=== PATIENT | female | born 1960 | race African-American/Black ===

== ENCOUNTER 2022-12-31 08:01 | Inpatient (IN) | payer MEDICARE, OTHER ==
[~2022-12-31] VITALS: Ht 154.9 cm; Wt 93.9 kg
[2022-12-31] MEDS ORDERED: PROCHLORPERAZINE EDISYLATE 5 MG/ML 2ML VIAL IV ONE (08:15)
[2022-12-31] MEDS ORDERED: SODIUM CHLORIDE 0.9% 1,000 ML IVB ONE (08:15)
[2022-12-31] MEDS ORDERED: ONDANSETRON HCL 4 MG/2 ML VIAL IV ONE (08:15)
[2022-12-31] MEDS ORDERED: PANTOPRAZOLE 40 MG/10 ML VIAL INJ IV ONE (08:15)
[2022-12-31 08:37] LABS: Basophils # (auto) 0.1 10 ^3/uL (0-0.2); Basophils % (auto) 0.6 % (0.0-2.0); Eosinophils # (auto) 0 10 ^3/uL (0-0.8); Eosinophils % (auto) 0.1 % (0.0-7.0); Hematocrit 41.2 % (36.0-46.0); Hemoglobin 14.1 g/dL (12.2-16.2); Lymphocytes # (auto) 1.6 10 ^3/uL (0.4-5.4); Lymphocytes % (auto) 12.5 % (10.0-50.0); Mean Corpuscular Hemoglobin 29.6 pg (28.0-32.0); Mean Corpuscular Hgb Conc. 34.1 g/dL (32.0-36.0); Mean Corpuscular Volume 86.7 fL (80.0-100.0); Monocytes # (auto) 0.4 10 ^3/uL (0-1.3); Monocytes % (auto) 3.4 % (0.0-12.0); Neutrophils # (auto) 10.3 10 ^3/uL (1.6-8.6); Neutrophils % (auto) 83.4 % (37.0-80.0); Nucleated Red Blood Cells % 0.1 %; Red Blood Cells 4.75 10^6/uL (4.0-5.20); Red Cell Distribution Width 15.8 % (11.8-14.3); White Blood Cell 12.4 10^3/uL (4.4-10.8)
[2022-12-31 08:43] LABS: Urine Bacteria FEW /hpf (None Seen); Urine Blood 1+ /uL (Negative); Urine Mucus FEW (None Seen); Urine Specific Gravity 1.024 (1.001-1.035); Urine WBC 20 /hpf (0 - 5)
[2022-12-31 08:58] LABS: Albumin 3.8 g/dL (3.4-5.0); Calcium 9.2 mg/dL (8.5-10.1); Magnesium 2.4 mg/dL (1.6-2.6)
[2022-12-31] MEDS ORDERED: MORPHINE SULFATE INJ 2 MG/ml SYRG IV ONE (09:00)
[2022-12-31 09:02] LABS: Bilirubin, Total 0.5 mg/dL (0.2-1.0); Total Protein 7.7 g/dL (6.4-8.2)
[2022-12-31 09:12] LABS: Potassium 2.9 mmol/L (3.5-5.1)
[2022-12-31] MEDS ORDERED: cefTRIAXone 1GM/50ML D5W 50 ML IV ONE ×2 (09:15→09:30)
[2022-12-31] MEDS ORDERED: SODIUM CHLORIDE 0.9% 1,000 ML IV ONE (09:30)
[2022-12-31] MEDS ORDERED: levoFLOXacin 500MG 100 ML IV ONE (09:30)
[2022-12-31] MEDS ORDERED: POTASSIUM CHL 20MEQ/100ML 100 ML IV ONE (09:45)
[2022-12-31] MEDS ORDERED: hydrALAZINE HCL 20 MG/ML VL IV PRN (10:30)
[2022-12-31] MEDS ORDERED: DEXTROSE (50%) 50ML SYRG IV PRN (10:30)
[2022-12-31] MEDS: SODIUM CHLORIDE 0.9% 1,000 ML IV SCH ×2 (11:20→18:56)
[2022-12-31 11:34] LABS: Alcohol, Urine < 3.0 mg/dL (0-10); Amphetamine Screen, Urine NEGATIVE (NEGATIVE); Barbiturate Scree,Urine NEGATIVE (NEGATIVE); Benzodiazephine Screen, Urine NEGATIVE (NEGATIVE); Cannabinoid Screen, Urine POSITIVE (NEGATIVE); Cocaine Screen, Urine POSITIVE (NEGATIVE); Opiate Scree,Urine NEGATIVE (NEGATIVE)
[2022-12-31 11:47] LABS: Phencyclidine Screen, Urine NEGATIVE (NEGATIVE)
[2022-12-31] MEDS ORDERED: IPRATROPIUM BROM 0.5 MG/2.5ML INH SOL NEB PRN (12:00)
[2022-12-31] MEDS ORDERED: ALBUTEROL SULF 2.5 MG/0.5ML(0.5%) NEB SOLN NEB PRN (12:00)
[2022-12-31] MEDS: ONDANSETRON HCL 4 MG/2 ML VIAL IV PRN ×2 (12:07→16:18)
[2022-12-31] MEDS: ACCU-CHEK COMFORT CURVE STRIP VI SCH ×2 (12:11→18:13)
[2022-12-31] MEDS: InsuLIN REG 1unit/0.01ml Soln (100units/ml) SC SCH ×2 (12:40→18:00)
[2022-12-31 12:49] LABS: Sodium Urine 16 mmol/L (40-220)
[2022-12-31 12:58] LABS: Creatinine, Urine 294 mg/dL (30.0-125.0)
[2022-12-31 13:48] VITALS: BP 153/83; PULSE 88; RESP 15; TEMP 98; O2SAT 100
[2022-12-31 16:00] VITALS: PULSE 82; RESP 18; O2SAT 98
[2022-12-31] MEDS ORDERED: POTASSIUM CHL 20 Meq TABLET PO ONE (16:00)
[2022-12-31] MEDS: MORPHINE SULFATE INJ 2 MG/ml SYRG IV PRN ×2 (16:19→22:35)
[2022-12-31] MEDS: POTASSIUM CHL 20MEQ/100ML 100 ML IV SCH ×2 (16:32→18:16)
[2022-12-31 19:28] VITALS: PULSE 79; RESP 12; O2SAT 97
[2023-01-01] MEDS: SODIUM CHLORIDE 0.9% 1,000 ML IV SCH ×3 (03:27→20:10)
[2023-01-01] MEDS: MORPHINE SULFATE INJ 2 MG/ml SYRG IV PRN ×4 (03:37→20:22)
[2023-01-01] MEDS: InsuLIN REG 1unit/0.01ml Soln (100units/ml) SC SCH ×4 (06:00→18:00)
[2023-01-01] MEDS: ACCU-CHEK COMFORT CURVE STRIP VI SCH ×4 (06:06→18:00)
[2023-01-01 06:25] VITALS: O2SAT 94
[2023-01-01 06:55] LABS: Basophils # (auto) 0.1 10 ^3/uL (0-0.2); Basophils % (auto) 1.1 % (0.0-2.0); Eosinophils # (auto) 0.1 10 ^3/uL (0-0.8); Eosinophils % (auto) 1.2 % (0.0-7.0); Hematocrit 37.7 % (36.0-46.0); Hemoglobin 12.9 g/dL (12.2-16.2); Lymphocytes # (auto) 2.9 10 ^3/uL (0.4-5.4); Lymphocytes % (auto) 23.5 % (10.0-50.0); Mean Corpuscular Hemoglobin 29.3 pg (28.0-32.0); Mean Corpuscular Hgb Conc. 34.1 g/dL (32.0-36.0); Mean Corpuscular Volume 85.9 fL (80.0-100.0); Monocytes % (auto) 7.8 % (0.0-12.0); Neutrophils # (auto) 8.1 10 ^3/uL (1.6-8.6); Neutrophils % (auto) 66.4 % (37.0-80.0); Nucleated Red Blood Cells % 0.1 %; Red Blood Cells 4.39 10^6/uL (4.0-5.20); Red Cell Distribution Width 15.7 % (11.8-14.3); White Blood Cell 12.2 10^3/uL (4.4-10.8)
[2023-01-01 07:00] LABS: Albumin 3.6 g/dL (3.4-5.0); Calcium 9.1 mg/dL (8.5-10.1); Potassium 3.3 mmol/L (3.5-5.1)
[2023-01-01 07:06] LABS: Bilirubin, Total 0.7 mg/dL (0.2-1.0); Total Protein 7.2 g/dL (6.4-8.2)
[2023-01-01] MEDS: ONDANSETRON HCL 4 MG/2 ML VIAL IV PRN ×2 (07:51→20:21)
[2023-01-01 08:14] VITALS: PULSE 82; RESP 18; O2SAT 96
[2023-01-01] MEDS ORDERED: PANTOPRAZOLE 40 MG/10 ML VIAL INJ IV SCH (10:00)
[2023-01-01] MEDS: NICOTINE 21MG/24 HR TOPICAL PATCH TD SCH (10:07)
[2023-01-01] MEDS: cefTRIAXone 1GM/50ML D5W 50 ML IV SCH (10:07)
[2023-01-01] MEDS ORDERED: POTASSIUM CHL 20 Meq TABLET PO ONE (17:00)
[2023-01-01] MEDS ORDERED: TRAZ-228 PO (17:15)
[2023-01-01] MEDS ORDERED: MET25T PO (17:15)
[2023-01-01] MEDS ORDERED: LURA40TA3 PO (17:15)
[2023-01-01] MEDS ORDERED: AMLO1TAB23 PO (17:15)
[2023-01-01] MEDS ORDERED: traZODone HCL 50 MG TAB PO PRN (17:30)
[2023-01-01] MEDS ORDERED: IOHEXOL 300 MG/ML 100ML BOTTLE IJ ONE (17:31)
[2023-01-01 17:55] LABS: Cholesterol 195 mg/dL (< 200); HDL Cholesterol 66 mg/dL (40-59); LDL Cholesterol 120 mg/dL (< 100); Triglycerides 52 mg/dL (< 150)
[2023-01-01] MEDS ORDERED: MIRT1TAB38 PO (18:06)
[2023-01-01] MEDS ORDERED: QUET100T47 PO (18:06)
[2023-01-01] MEDS ORDERED: HYDR-3682 PO (18:06)
[2023-01-01 20:00] VITALS: PULSE 69; RESP 14; O2SAT 96
[2023-01-01 22:23] VITALS: BP 152/81; PULSE 68; RESP 18; TEMP 98; O2SAT 100
[2023-01-01] MEDS: hydrOXYzine 25 MG TAB or CAP PO SCH (22:23)
[2023-01-01] MEDS: METOPROLOL TARTRATE 25 MG TAB PO SCH (22:23)
[2023-01-02] VITALS (11 sets, daily range): BP systolic 135–159; BP diastolic 69–85; PULSE 53–75; RESP 16–22; TEMP 97.9–98.2; O2SAT 97–100
[2023-01-02] MEDS: MIRTAZAPINE 30 MG TAB PO PRN ×2 (00:12→21:50)
[2023-01-02] MEDS: ACCU-CHEK COMFORT CURVE STRIP VI SCH ×4 (00:18→17:42)
[2023-01-02] MEDS: SODIUM CHLORIDE 0.9% 1,000 ML IV SCH ×2 (04:10→12:30)
[2023-01-02] MEDS: InsuLIN REG 1unit/0.01ml Soln (100units/ml) SC SCH ×4 (06:00→17:44)
[2023-01-02] MEDS: hydrOXYzine 25 MG TAB or CAP PO SCH ×3 (06:00→21:39)
[2023-01-02 07:02] LABS: BUN/Creatinine Ratio 10.7 (10.0-20.0); Calcium 8.7 mg/dL (8.5-10.1); Potassium 3.4 mmol/L (3.5-5.1)
[2023-01-02] MEDS ORDERED: POTASSIUM CHL 20MEQ/100ML 100 ML IV ONE (07:45)
[2023-01-02] MEDS: cefTRIAXone 1GM/50ML D5W 50 ML IV SCH (09:19)
[2023-01-02] MEDS: ONDANSETRON HCL 4 MG/2 ML VIAL IV PRN ×3 (09:19→20:28)
[2023-01-02] MEDS: amLODIPine BESYLATE 5 MG TAB PO SCH (10:12)
[2023-01-02] MEDS: METOPROLOL TARTRATE 25 MG TAB PO SCH ×2 (10:12→21:40)
[2023-01-02] MEDS: PANTOPRAZOLE 40 MG TAB PO SCH (10:12)
[2023-01-02] MEDS: QUEtiapine FUMARATE 100 MG TAB PO SCH (10:12)
[2023-01-02] MEDS: NICOTINE 21MG/24 HR TOPICAL PATCH TD SCH (10:13)
[2023-01-02] MEDS: MORPHINE SULFATE INJ 2 MG/ml SYRG IV PRN ×2 (13:12→20:35)
[2023-01-02] MEDS ORDERED: DICYCLOMINE HCL 10 MG CAP PO PRN (13:30)
[2023-01-02 14:43] LABS: BUN/Creatinine Ratio 11.3 (10.0-20.0); Calcium 8.6 mg/dL (8.5-10.1); Potassium 3.9 mmol/L (3.5-5.1)
[2023-01-02] MEDS: VANCOMYCIN HCL 125MG/5ML ORAL SOL PO SCH ×2 (17:46→21:41)
[2023-01-02] MEDS: ATORVASTATIN 20 MG TAB PO SCH (21:38)
[2023-01-02] MEDS: NITROFURANTOIN 100 mg CAP PO SCH (21:38)
[2023-01-03] VITALS (10 sets, daily range): BP systolic 133–168; BP diastolic 67–87; PULSE 61–96; RESP 16–19; TEMP 97.9–98.9; O2SAT 94–100
[2023-01-03] MEDS: InsuLIN REG 1unit/0.01ml Soln (100units/ml) SC SCH ×2 (00:17→05:57)
[2023-01-03] MEDS: ACCU-CHEK COMFORT CURVE STRIP VI SCH ×2 (00:19→05:56)
[2023-01-03] MEDS: SODIUM CHLORIDE 0.9% 1,000 ML IV SCH ×2 (00:20→05:10)
[2023-01-03 05:25] LABS: Basophils # (auto) 0.1 10 ^3/uL (0-0.2); Basophils % (auto) 0.6 % (0.0-2.0); Eosinophils # (auto) 0.3 10 ^3/uL (0-0.8); Eosinophils % (auto) 2.9 % (0.0-7.0); Hematocrit 38.9 % (36.0-46.0); Hemoglobin 13.4 g/dL (12.2-16.2); Lymphocytes # (auto) 2.8 10 ^3/uL (0.4-5.4); Lymphocytes % (auto) 25.3 % (10.0-50.0); Mean Corpuscular Hemoglobin 29.9 pg (28.0-32.0); Mean Corpuscular Hgb Conc. 34.5 g/dL (32.0-36.0); Mean Corpuscular Volume 86.6 fL (80.0-100.0); Monocytes # (auto) 0.8 10 ^3/uL (0-1.3); Monocytes % (auto) 6.8 % (0.0-12.0); Neutrophils # (auto) 7.3 10 ^3/uL (1.6-8.6); Neutrophils % (auto) 64.4 % (37.0-80.0); Nucleated Red Blood Cells % 0.1 %; Red Blood Cells 4.49 10^6/uL (4.0-5.20); Red Cell Distribution Width 15.6 % (11.8-14.3); White Blood Cell 11.3 10^3/uL (4.4-10.8)
[2023-01-03 05:26] LABS: BUN/Creatinine Ratio 15.9 (10.0-20.0); Calcium 8.8 mg/dL (8.5-10.1); Magnesium 2.2 mg/dL (1.6-2.6); Potassium 3.6 mmol/L (3.5-5.1)
[2023-01-03] MEDS: hydrOXYzine 25 MG TAB or CAP PO SCH ×3 (05:35→21:53)
[2023-01-03] MEDS: MORPHINE SULFATE INJ 2 MG/ml SYRG IV PRN ×4 (05:38→21:55)
[2023-01-03] MEDS: ONDANSETRON HCL 4 MG/2 ML VIAL IV PRN ×4 (05:43→21:54)
[2023-01-03] MEDS: VANCOMYCIN HCL 125MG/5ML ORAL SOL PO SCH ×4 (06:00→21:52)
[2023-01-03] MEDS: PANTOPRAZOLE 40 MG TAB PO SCH (09:18)
[2023-01-03] MEDS: QUEtiapine FUMARATE 100 MG TAB PO SCH (09:18)
[2023-01-03] MEDS: METOPROLOL TARTRATE 25 MG TAB PO SCH ×2 (09:19→21:53)
[2023-01-03] MEDS: amLODIPine BESYLATE 5 MG TAB PO SCH (09:20)
[2023-01-03] MEDS: NITROFURANTOIN 100 mg CAP PO SCH ×2 (09:20→21:52)
[2023-01-03] MEDS: NICOTINE 21MG/24 HR TOPICAL PATCH TD SCH (09:21)
[2023-01-03] MEDS ORDERED: LURASIDONE 40 MG PO SCH (17:30)
[2023-01-03] MEDS: ATORVASTATIN 20 MG TAB PO SCH (21:52)
[2023-01-04] VITALS (8 sets, daily range): BP systolic 121–159; BP diastolic 62–86; PULSE 61–71; RESP 16–18; TEMP 97.9–98.4; O2SAT 93–100
[2023-01-04] MEDS: ONDANSETRON HCL 4 MG/2 ML VIAL IV PRN ×4 (05:41→23:11)
[2023-01-04] MEDS: hydrOXYzine 25 MG TAB or CAP PO SCH ×3 (05:42→22:29)
[2023-01-04] MEDS: MORPHINE SULFATE INJ 2 MG/ml SYRG IV PRN ×4 (05:42→23:11)
[2023-01-04] MEDS: VANCOMYCIN HCL 125MG/5ML ORAL SOL PO SCH ×4 (05:42→22:31)
[2023-01-04] MEDS: PANTOPRAZOLE 40 MG TAB PO SCH (09:35)
[2023-01-04] MEDS: NICOTINE 21MG/24 HR TOPICAL PATCH TD SCH (09:35)
[2023-01-04] MEDS: NITROFURANTOIN 100 mg CAP PO SCH ×2 (09:35→22:29)
[2023-01-04] MEDS: METOPROLOL TARTRATE 25 MG TAB PO SCH ×2 (09:36→22:29)
[2023-01-04] MEDS: amLODIPine BESYLATE 5 MG TAB PO SCH (09:36)
[2023-01-04] MEDS: QUEtiapine FUMARATE 100 MG TAB PO SCH (09:36)
[2023-01-04] MEDS: LURASIDONE 40 MG PO SCH (16:41)
[2023-01-04] MEDS: ATORVASTATIN 20 MG TAB PO SCH (22:29)
[2023-01-05] VITALS (7 sets, daily range): BP systolic 109–167; BP diastolic 62–87; PULSE 60–76; RESP 18–22; TEMP 98.4–99.1; O2SAT 98–100
[2023-01-05] MEDS: MIRTAZAPINE 30 MG TAB PO PRN (00:32)
[2023-01-05] MEDS: HYDROcodone-ACET 5/325MG TAB PO PRN ×2 (01:39→08:25)
[2023-01-05] MEDS: ONDANSETRON HCL 4 MG/2 ML VIAL IV PRN (04:30)
[2023-01-05] MEDS: MORPHINE SULFATE INJ 2 MG/ml SYRG IV PRN (04:41)
[2023-01-05 05:30] LABS: Basophils # (auto) 0 10 ^3/uL (0-0.2); Basophils % (auto) 0.3 % (0.0-2.0); Eosinophils # (auto) 0.4 10 ^3/uL (0-0.8); Eosinophils % (auto) 3.4 % (0.0-7.0); Hemoglobin 14.1 g/dL (12.2-16.2); Lymphocytes % (auto) 16.4 % (10.0-50.0); Mean Corpuscular Hemoglobin 29.8 pg (28.0-32.0); Mean Corpuscular Hgb Conc. 34.3 g/dL (32.0-36.0); Mean Corpuscular Volume 86.9 fL (80.0-100.0); Monocytes % (auto) 8.6 % (0.0-12.0); Neutrophils # (auto) 8.6 10 ^3/uL (1.6-8.6); Neutrophils % (auto) 71.3 % (37.0-80.0); Nucleated Red Blood Cells % 0.1 %; Red Blood Cells 4.72 10^6/uL (4.0-5.20); Red Cell Distribution Width 15.8 % (11.8-14.3); White Blood Cell 12.1 10^3/uL (4.4-10.8)
[2023-01-05] MEDS: hydrOXYzine 25 MG TAB or CAP PO SCH ×3 (05:45→21:37)
[2023-01-05] MEDS: VANCOMYCIN HCL 125MG/5ML ORAL SOL PO SCH ×4 (05:45→21:37)
[2023-01-05 06:09] LABS: BUN/Creatinine Ratio 13.5 (10.0-20.0); Magnesium 2.3 mg/dL (1.6-2.6); Potassium 3.2 mmol/L (3.5-5.1)
[2023-01-05] MEDS ORDERED: POTASSIUM CHL 20 Meq TABLET PO ONE (08:00)
[2023-01-05] MEDS ORDERED: MORPHINE SULFATE INJ 2 MG/ml SYRG IV PRN (08:45)
[2023-01-05] MEDS: NITROFURANTOIN 100 mg CAP PO SCH ×2 (09:00→21:37)
[2023-01-05] MEDS: QUEtiapine FUMARATE 100 MG TAB PO SCH (09:00)
[2023-01-05] MEDS: amLODIPine BESYLATE 5 MG TAB PO SCH (09:00)
[2023-01-05] MEDS: PANTOPRAZOLE 40 MG TAB PO SCH (09:01)
[2023-01-05] MEDS: NICOTINE 21MG/24 HR TOPICAL PATCH TD SCH (09:01)
[2023-01-05] MEDS: METOPROLOL TARTRATE 25 MG TAB PO SCH ×2 (09:01→21:37)
[2023-01-05] MEDS: HYDROmorphone HCL 2 MG/ML VL/or syr IV PRN ×2 (15:05→19:28)
[2023-01-05] MEDS: LURASIDONE 40 MG PO SCH (17:30)
[2023-01-05] MEDS: ATORVASTATIN 20 MG TAB PO SCH (21:37)
[2023-01-06] MEDS: HYDROmorphone HCL 2 MG/ML VL/or syr IV PRN ×3 (00:08→09:53)
[2023-01-06] MEDS: MIRTAZAPINE 30 MG TAB PO PRN (02:21)
[2023-01-06 05:00] VITALS: BP 155/87; PULSE 75; RESP 20; TEMP 97.7; O2SAT 93
[2023-01-06] MEDS: hydrOXYzine 25 MG TAB or CAP PO SCH ×2 (05:59→14:00)
[2023-01-06] MEDS: VANCOMYCIN HCL 125MG/5ML ORAL SOL PO SCH ×2 (05:59→12:00)
[2023-01-06 07:02] LABS: Anion Gap 10 (5-15); BUN/Creatinine Ratio 15.6 (10.0-20.0); Blood Urea Nitrogen 15 mg/dL (7-18); Calcium 8.8 mg/dL (8.5-10.1); Carbon Dioxide 25 mmol/L (21-32); Chloride 104 mmol/L (98-107); GFR African American 75 mL/min; GFR Non-African American 62 mL/min; Glucose 131 mg/dL (74-106); Potassium 3.4 mmol/L (3.5-5.1); Sodium 139 mmol/L (136-145)
[2023-01-06 08:10] VITALS: BP 152/77; PULSE 62; RESP 22; TEMP 98.7
[2023-01-06] MEDS ORDERED: POTASSIUM CHL 20 Meq TABLET PO ONE (08:30)
[2023-01-06] MEDS ORDERED: MIRTAZAPINE 30 MG TAB PO PRN (08:30)
[2023-01-06 09:00] VITALS: BP 116/75; PULSE 75; RESP 18; TEMP 98.1; O2SAT 98
[2023-01-06 09:50] LABS: Basophils # (auto) 0.1 10 ^3/uL (0-0.2); Basophils % (auto) 0.4 % (0.0-2.0); Eosinophils # (auto) 0.6 10 ^3/uL (0-0.8); Eosinophils % (auto) 3.8 % (0.0-7.0); Hematocrit 37.1 % (36.0-46.0); Hemoglobin 12.7 g/dL (12.2-16.2); Lymphocytes # (auto) 1.7 10 ^3/uL (0.4-5.4); Lymphocytes % (auto) 11.6 % (10.0-50.0); Mean Corpuscular Hemoglobin 30.2 pg (28.0-32.0); Mean Corpuscular Hgb Conc. 34.2 g/dL (32.0-36.0); Mean Corpuscular Volume 88.4 fL (80.0-100.0); Monocytes # (auto) 1.7 10 ^3/uL (0-1.3); Monocytes % (auto) 11.3 % (0.0-12.0); Neutrophils % (auto) 72.9 % (37.0-80.0); Nucleated Red Blood Cells % 0.1 %; Red Blood Cells 4.19 10^6/uL (4.0-5.20); Red Cell Distribution Width 16.1 % (11.8-14.3); White Blood Cell 15.1 10^3/uL (4.4-10.8)
[2023-01-06] MEDS: QUEtiapine FUMARATE 100 MG TAB PO SCH (09:50)
[2023-01-06] MEDS: NITROFURANTOIN 100 mg CAP PO SCH (09:51)
[2023-01-06] MEDS: amLODIPine BESYLATE 5 MG TAB PO SCH (09:51)
[2023-01-06] MEDS: METOPROLOL TARTRATE 25 MG TAB PO SCH (09:51)
[2023-01-06] MEDS: PANTOPRAZOLE 40 MG TAB PO SCH (09:51)
[2023-01-06] MEDS: NICOTINE 21MG/24 HR TOPICAL PATCH TD SCH (09:56)
[2023-01-06] MEDS ORDERED: HYDROmorphone HCL 2 MG/ML VL/or syr IV PRN (11:15)
[2023-01-06] MEDS ORDERED: KETOROLAC TROMETH 30 MG/ML 1ML VIAL IV PRN (11:15)
[2023-01-06] MEDS ORDERED: HYDR-4902 PO (11:27)
[2023-01-06] MEDS ORDERED: VANC125PO PO (11:27)
[2023-01-06 13:00] VITALS: BP 111/73; PULSE 68; RESP 18; TEMP 98.5; O2SAT 94
[2023-01-06] MEDS: ONDANSETRON HCL 4 MG/2 ML VIAL IV PRN (14:47)
[2023-01-06] MEDS: HYDROcodone-ACET 5/325MG TAB PO PRN (14:48)
[2023-01-06 15:17] VITALS: BP 130/68; PULSE 78; TEMP 36.7
== END 2023-01-06 17:54 | disposition home or self-care (01) | DRG 372 ==
LOC: ER 08:01 → TELE 10:36 → TELE-WESTW 01-01 20:47
PROVIDERS: ADMIT Internal Medicine Pulmonary Disease
DX: A04.72 Enterocolitis due to Clostridium difficile, not specified as recurrent (principal); N17.9 Acute kidney failure, unspecified; N30.00 Acute cystitis without hematuria; E86.0 Dehydration; E87.6 Hypokalemia; I10 Essential (primary) hypertension; F17.210 Nicotine dependence, cigarettes, uncomplicated; F12.10 Cannabis abuse, uncomplicated; F31.9 Bipolar disorder, unspecified; J44.9 Chronic obstructive pulmonary disease, unspecified; R73.9 Hyperglycemia, unspecified; D72.829 Elevated white blood cell count, unspecified; I25.10 Atherosclerotic heart disease of native coronary artery without angina pectoris; K08.89 Other specified disorders of teeth and supporting structures; D35.02 Benign neoplasm of left adrenal gland; E78.5 Hyperlipidemia, unspecified; Z79.899 Other long term (current) drug therapy; Z83.3 Family history of diabetes mellitus; Z99.81 Dependence on supplemental oxygen; Z90.49 Acquired absence of other specified parts of digestive tract; Z98.51 Tubal ligation status
CPT/HCPCS: 36415; 71260; 74176; 74177; 80048; 80053; 80061; 80307; 81001; 82570; 82962; 83036; 83605; 83690; 83735; 83835; 83930; 84132; 84300; 85025; 87045; 87086; 87427; 87493; 94640; 96365; 96375; C9113; G0378; J0696; J1815; J2405; J3480

== ENCOUNTER 2023-06-10 09:22 | Emergency (ER) | payer MEDICARE, OTHER ==
[~2023-06-10] VITALS: Ht 154.9 cm; Wt 68.0 kg
[~2023-06-10 09:22] MED LIST: AMLO1TAB23 PO; HYDR-3682 PO; HYDR-4902 PO; LURA40TA3 PO; MET25T PO; MIRT1TAB38 PO; QUET100T47 PO; TRAZ-228 PO; VANC125PO PO
[2023-06-10 09:49] VITALS: TEMP 98; O2SAT 100
[2023-06-10] MEDS ORDERED: HYDROcodone-ACET 10/325MG TAB PO ONE (10:00)
[2023-06-10] MEDS ORDERED: ONDANSETRON HCL 4 MG/2 ML VIAL IM ONE (10:00)
[2023-06-10] MEDS ORDERED: METOCLOPRAMIDE HCL 5MG/ml INJ 2ml VIAL IM ONE (10:30)
[2023-06-10] MEDS ORDERED: HYDROmorphone HCL 2 MG/ML VL/or syr IM ONE (10:45)
[2023-06-10 11:08] LABS: Rapid Influenza A Negative (Negative); Rapid Influenza B Negative (Negative)
[2023-06-10 11:09] LABS: COVID19 ANTIGEN SOFIA FIA NEGATIVE (NEGATIVE)
[2023-06-10 11:31] LABS: Alanine Aminotransferase 25 U/L (7-40); Albumin 4.8 g/dL (3.2-4.8); Alkaline Phosphatase 130 U/L (46-116); Anion Gap 7 (5-15); Aspartate Aminotransferase 18 U/L (13-40); BUN/Creatinine Ratio 12.6 (10.0-20.0); Bilirubin, Total 0.8 mg/dL (0.2-1.0); Blood Urea Nitrogen 12 mg/dL (9-23); Calcium 9.7 mg/dL (8.7-10.4); Carbon Dioxide 27 mmol/L (20-30); Chloride 104 mmol/L (98-107); Glucose 151 mg/dL (74-106); Lipase 34 U/L (12-53); Potassium 3.2 mmol/L (3.5-5.1); Sodium 138 mmol/L (136-145); Total Protein 7.7 g/dL (5.7-8.2)
[2023-06-10 11:39] VITALS: BP 138/70; PULSE 79; RESP 18
[2023-06-10 11:52] LABS: Basophils # (auto) 0.1 10 ^3/uL (0-0.2); Basophils % (auto) 0.6 % (0.0-2.0); Eosinophils # (auto) 0 10 ^3/uL (0-0.8); Eosinophils % (auto) 0.1 % (0.0-7.0); Hemoglobin 14.5 g/dL (12.2-16.2); Lymphocytes # (auto) 1.9 10 ^3/uL (0.4-5.4); Lymphocytes % (auto) 16.6 % (10.0-50.0); Mean Corpuscular Hemoglobin 28.8 pg (28.0-32.0); Mean Corpuscular Hgb Conc. 33.6 g/dL (32.0-36.0); Mean Corpuscular Volume 85.7 fL (80.0-100.0); Monocytes # (auto) 0.6 10 ^3/uL (0-1.3); Monocytes % (auto) 5.2 % (0.0-12.0); Neutrophils # (auto) 8.9 10 ^3/uL (1.6-8.6); Neutrophils % (auto) 77.5 % (37.0-80.0); Nucleated Red Blood Cells % 0.9 %; Red Blood Cells 5.02 10^6/uL (4.0-5.20); Red Cell Distribution Width 15.4 % (11.8-14.3); White Blood Cell 11.5 10^3/uL (4.4-10.8)
[2023-06-10 12:23] LABS: Urine Bacteria NONE SEEN /hpf (None Seen); Urine Blood TRACE /uL (Negative); Urine Clarity Clear (Clear); Urine Color Yellow (Yellow); Urine Hyaline Cast FEW /lpf (0 - 2); Urine Mucus FEW (None Seen); Urine Protein, UAD 2+ (Negative); Urine Specific Gravity 1.021 (1.001-1.035); Urine WBC 5 /hpf (0 - 5)
[2023-06-10] MEDS ORDERED: METO-281 PO (13:05)
[2023-06-10] MEDS ORDERED: ZOFR4T PO (13:05)
[2023-06-10] MEDS ORDERED: ACE3T PO (13:05)
== END 2023-06-10 13:13 | disposition home or self-care (01) ==
LOC: EDUNIT# 09:22 → EDBD 09:22 → ER 09:22
DX: N39.0 Urinary tract infection, site not specified (principal); R11.2 Nausea with vomiting, unspecified; I10 Essential (primary) hypertension; J44.9 Chronic obstructive pulmonary disease, unspecified; F17.210 Nicotine dependence, cigarettes, uncomplicated; Z90.49 Acquired absence of other specified parts of digestive tract; Z79.2 Long term (current) use of antibiotics; Z79.899 Other long term (current) drug therapy; Z20.822 Contact with and (suspected) exposure to COVID-19
CPT/HCPCS: 36415; 74176; 80053; 81001; 83605; 83690; 85025; 87426; 87804; 96372; 99285; J1170; J2405; J2765

== ENCOUNTER 2023-12-03 15:47 | Emergency (ER) | payer MEDICARE, OTHER ==
[~2023-12-03] VITALS: Ht 154.9 cm; Wt 65.3 kg
[~2023-12-03 15:47] MED LIST changes: +ACE3T PO; +METO-281 PO; +ZOFR4T PO
[2023-12-03 16:51] VITALS: BP 143/92; PULSE 78; RESP 14; TEMP 97.9; O2SAT 98
[2023-12-03] MEDS: KETOROLAC TROMETH 60MG/2ML VIAL IM ONE (17:14)
[2023-12-03] MEDS: ONDANSETRON ODT 4 MG TAB PO ONE (17:14)
[2023-12-03] MEDS ORDERED: BACL10TA PO (17:33)
[2023-12-03] MEDS ORDERED: IBUP-1456 PO (17:33)
== END 2023-12-03 17:36 | disposition home or self-care (01) ==
LOC: ER 15:47
DX: M62.831 Muscle spasm of calf (principal); I10 Essential (primary) hypertension; J44.9 Chronic obstructive pulmonary disease, unspecified; F17.210 Nicotine dependence, cigarettes, uncomplicated; F15.90 Other stimulant use, unspecified, uncomplicated; Z98.890 Other specified postprocedural states; Z79.899 Other long term (current) drug therapy
CPT/HCPCS: 96372; 99283; J1885; Q0162

== ENCOUNTER 2024-03-08 05:39 | Inpatient (IN) | payer MEDICARE, OTHER ==
[~2024-03-08] VITALS: Ht 154.9 cm; Wt 59.1 kg
[~2024-03-08 05:39] MED LIST changes: +BACL10TA PO; +IBUP-1456 PO
[2024-03-08 07:07] LABS: Basophils # (auto) 0.1 10 ^3/uL (0-0.2); Basophils % (auto) 0.6 % (0.0-2.0); Eosinophils # (auto) 0.1 10 ^3/uL (0-0.8); Eosinophils % (auto) 0.7 % (0.0-7.0); Lymphocytes % (auto) 18.9 % (10.0-50.0); Mean Corpuscular Hgb Conc. 35.9 g/dL (32.0-36.0); Mean Corpuscular Volume 91.8 fL (80.0-100.0); Monocytes # (auto) 0.5 10 ^3/uL (0-1.3); Monocytes % (auto) 4.3 % (0.0-12.0); Neutrophils # (auto) 8.1 10 ^3/uL (1.6-8.6); Neutrophils % (auto) 75.5 % (37.0-80.0); Nucleated Red Blood Cells % 0.1 %; Platelet Count (auto) 313 10^3/uL (140-450); Red Blood Cells 4.25 10^6/uL (4.0-5.20); White Blood Cell 10.7 10^3/uL (4.4-10.8)
[2024-03-08 07:26] LABS: Alanine Aminotransferase 15 U/L (7-40); Albumin 4.5 g/dL (3.2-4.8); Alkaline Phosphatase 103 U/L (46-116); Anion Gap 10 (5-15); Aspartate Aminotransferase 18 U/L (13-40); BUN/Creatinine Ratio 13.3 (10.0-20.0); Blood Urea Nitrogen 14 mg/dL (9-23); Calcium 10.1 mg/dL (8.7-10.4); Carbon Dioxide 24 mmol/L (20-31); Chloride 107 mmol/L (98-107); Glucose 165 mg/dL (74-106); Magnesium 2.2 mg/dL (1.6-2.6); Potassium 3.4 mmol/L (3.5-5.1); Sodium 141 mmol/L (136-145)
[2024-03-08 07:27] LABS: Bilirubin, Total 0.7 mg/dL (0.2-1.0); Total Protein 7.2 g/dL (5.7-8.2)
[2024-03-08] MEDS: SODIUM CHLORIDE 0.9% 1,000 ML IV ONE ×2 (08:15→10:50)
[2024-03-08] MEDS: ASPirin 325 MG TAB PO ONE (09:02)
[2024-03-08] MEDS: ONDANSETRON HCL 4 MG/2 ML VIAL IV ONE ×3 (09:39→15:03)
[2024-03-08] MEDS: MORPHINE SULFATE 4 MG/ML SYR/VIAL IV ONE (09:39)
[2024-03-08 11:35] VITALS: PULSE 65; RESP 17; O2SAT 97
[2024-03-08] MEDS: KETOROLAC TROMETH 30 MG/ML 1ML VIAL IV ONE (12:27)
[2024-03-08] MEDS: MORPHINE SULFATE INJ 2 MG/ml SYRG IV ONE (15:07)
[2024-03-08] MEDS ORDERED: MIRTAZAPINE PO PRN (15:15)
[2024-03-08] MEDS ORDERED: DEXTROSE (50%) 50ML SYRG IV PRN (15:15)
[2024-03-08] MEDS ORDERED: NITROGLYCERIN 0.4 MG SL TAB SL PRN (15:15)
[2024-03-08] MEDS ORDERED: DOCUSATE SOD 100 MG CAP PO PRN (15:15)
[2024-03-08] MEDS: POTASSIUM EFFERVESENT TAB 25 MEQ PO ONE (17:37)
[2024-03-08] MEDS: ATORVASTATIN 20 MG TAB PO SCH (17:37)
[2024-03-08] MEDS: ASPirin 81 mg TAB PO ONE (17:38)
[2024-03-08] MEDS: SODIUM CHLORIDE 0.9% 1,000 ML IV SCH (17:40)
[2024-03-08 18:41] LABS: Amphetamine Screen, Urine Neg (NEGATIVE); Barbiturate Scree,Urine Neg (NEGATIVE); Benzodiazephine Screen, Urine Neg (NEGATIVE); Cocaine Screen, Urine Pos (NEGATIVE); Opiate Scree,Urine Neg (NEGATIVE)
[2024-03-08 18:42] LABS: Cannabinoid Screen, Urine Pos (NEGATIVE); Phencyclidine Screen, Urine Neg (NEGATIVE)
[2024-03-08 18:55] LABS: Urine Bacteria None Seen /hpf (None Seen)
[2024-03-08 18:59] LABS: Urine Epithelial Cast FEW /hpf (<5); Urine WBC 1 /hpf (0 - 5)
[2024-03-08 19:15] VITALS: PULSE 66; RESP 17; O2SAT 97
[2024-03-08] MEDS: ACCU-CHEK COMFORT CURVE STRIP VI SCH (19:15)
[2024-03-08] MEDS: InsuLIN REG 1unit/0.01ml Soln (100units/ml) SC SCH (19:15)
[2024-03-08] MEDS: LISINOPRIL 20 MG TAB PO STA (20:49)
[2024-03-08] MEDS ORDERED: METOPROLOL TARTRATE 25 MG TAB PO SCH (22:00)
[2024-03-08] MEDS: ONDANSETRON HCL 4 MG/2 ML VIAL IV PRN (22:25)
[2024-03-08] MEDS: MORPHINE SULFATE INJ 2 MG/ml SYRG IV PRN (22:28)
[2024-03-08] MEDS: hydrALAZINE HCL 20 MG/ML VL IV PRN (22:31)
[2024-03-09 04:50] LABS: Basophils # (auto) 0.1 10 ^3/uL (0-0.2); Basophils % (auto) 1.2 % (0.0-2.0); Eosinophils # (auto) 0 10 ^3/uL (0-0.8); Eosinophils % (auto) 0.3 % (0.0-7.0); Hematocrit 40.1 % (36.0-46.0); Hemoglobin 13.9 g/dL (12.2-16.2); Lymphocytes # (auto) 2.8 10 ^3/uL (0.4-5.4); Lymphocytes % (auto) 22.4 % (10.0-50.0); Mean Corpuscular Hemoglobin 31.8 pg (28.0-32.0); Mean Corpuscular Hgb Conc. 34.6 g/dL (32.0-36.0); Mean Corpuscular Volume 91.8 fL (80.0-100.0); Monocytes # (auto) 0.9 10 ^3/uL (0-1.3); Monocytes % (auto) 7.4 % (0.0-12.0); Neutrophils # (auto) 8.7 10 ^3/uL (1.6-8.6); Neutrophils % (auto) 68.7 % (37.0-80.0); Nucleated Red Blood Cells % 0.3 %; Platelet Count (auto) 288 10^3/uL (140-450); Red Blood Cells 4.37 10^6/uL (4.0-5.20); Red Cell Distribution Width 15.2 % (11.8-14.3); White Blood Cell 12.6 10^3/uL (4.4-10.8)
[2024-03-09 05:05] LABS: Alanine Aminotransferase 15 U/L (7-40); Albumin 4.7 g/dL (3.2-4.8); Alkaline Phosphatase 96 U/L (46-116); Anion Gap 9 (5-15); Aspartate Aminotransferase 18 U/L (13-40); BUN/Creatinine Ratio 9.2 (10.0-20.0); Blood Urea Nitrogen 8 mg/dL (9-23); Calcium 10.3 mg/dL (8.7-10.4); Carbon Dioxide 23 mmol/L (20-31); Chloride 106 mmol/L (98-107); Glucose 117 mg/dL (74-106); Potassium 3.5 mmol/L (3.5-5.1); Sodium 138 mmol/L (136-145)
[2024-03-09 05:06] LABS: Bilirubin, Total 0.8 mg/dL (0.2-1.0); Total Protein 7.5 g/dL (5.7-8.2)
[2024-03-09] MEDS ORDERED: MIRTAZAPINE PO PRN (07:45)
[2024-03-09] MEDS: amLODIPine BESYLATE 5 MG TAB PO SCH (10:17)
[2024-03-09] MEDS: QUEtiapine FUMARATE 100 MG TAB PO SCH (10:19)
[2024-03-09] MEDS: LISINOPRIL 20 MG TAB PO SCH (10:21)
[2024-03-09] MEDS: ASPirin 81 mg TAB PO SCH (10:22)
[2024-03-09] MEDS: MORPHINE SULFATE INJ 2 MG/ml SYRG ONE (10:47)
[2024-03-09] MEDS: PROCHLORPERAZINE MALEATE 10 MG TAB PO ONE (13:45)
[2024-03-09] MEDS: HYDROcodone-ACET 5/325MG TAB PO PRN (15:29)
[2024-03-09 16:11] VITALS: BP 118/84; PULSE 101; RESP 22; TEMP 98.4; O2SAT 96
[2024-03-09 17:00] VITALS: BP 118/84; PULSE 101; RESP 22; TEMP 98.4; O2SAT 96
[2024-03-09] MEDS: MAGNESIUM CITRATE SOLUTION 300 ML BTL PO ONE (17:54)
[2024-03-09] MEDS ORDERED: IBUPROFEN 400 MG TAB PO PRN (18:15)
[2024-03-09] MEDS ORDERED: ACETAMINOPHEN 325 MG TAB PO PRN (18:15)
[2024-03-09] MEDS: POLYETHYLENE GLYCOL 17 GM PWDR PO ONE (18:43)
[2024-03-09] MEDS: LACTATED RINGER'S 1,000 ML IV SCH (18:43)
[2024-03-09 20:00] VITALS: PULSE 114; RESP 18; O2SAT 96
[2024-03-09 21:00] VITALS: BP 154/81; PULSE 77; RESP 16; TEMP 99.4; O2SAT 96
[2024-03-09] MEDS: FAMOTIDINE 20 MG TAB PO SCH (22:04)
[2024-03-09] MEDS: DOCUSATE SOD 100 MG CAP PO SCH (22:04)
[2024-03-10 01:00] VITALS: BP 164/93; PULSE 80; RESP 20; TEMP 98.7; O2SAT 97
[2024-03-10 05:00] VITALS: BP 159/84; PULSE 70; RESP 18; TEMP 98.5; O2SAT 96
[2024-03-10 07:01] LABS: Chloride 105 mmol/L (98-107); Potassium 3.3 mmol/L (3.5-5.1); Sodium 140 mmol/L (136-145)
[2024-03-10 07:02] LABS: Anion Gap 7 (5-15); Carbon Dioxide 28 mmol/L (20-31)
[2024-03-10 07:03] LABS: Calcium 9.8 mg/dL (8.7-10.4)
[2024-03-10 07:07] LABS: Blood Urea Nitrogen 7 mg/dL (9-23); Glucose 93 mg/dL (74-106)
[2024-03-10 08:00] VITALS: PULSE 64; RESP 18; O2SAT 96
[2024-03-10] MEDS: hydrALAZINE HCL 25 MG TAB PO STA (08:48)
[2024-03-10 09:00] VITALS: BP 157/79; PULSE 74; RESP 17; TEMP 98.4; O2SAT 97
[2024-03-10] MEDS: IBUPROFEN 400 MG TAB PO ONE (09:24)
[2024-03-10] MEDS: ACETAMINOPHEN 325 MG TAB PO ONE (09:26)
[2024-03-10] MEDS: ENOXAPARIN SOD 40 MG/0.4 ML SYRINGE SC SCH (09:29)
[2024-03-10] MEDS: POLYETHYLENE GLYCOL 17 GM PWDR PO SCH (09:29)
[2024-03-10 10:38] LABS: Basophils # (auto) 0 10 ^3/uL (0-0.2); Basophils % (auto) 0.4 % (0.0-2.0); Eosinophils # (auto) 0.1 10 ^3/uL (0-0.8); Eosinophils % (auto) 1.3 % (0.0-7.0); Hemoglobin 12.8 g/dL (12.2-16.2); Lymphocytes # (auto) 2.8 10 ^3/uL (0.4-5.4); Lymphocytes % (auto) 24.6 % (10.0-50.0); Mean Corpuscular Hemoglobin 31.7 pg (28.0-32.0); Mean Corpuscular Hgb Conc. 34.7 g/dL (32.0-36.0); Mean Corpuscular Volume 91.5 fL (80.0-100.0); Monocytes # (auto) 0.9 10 ^3/uL (0-1.3); Monocytes % (auto) 7.5 % (0.0-12.0); Neutrophils # (auto) 7.5 10 ^3/uL (1.6-8.6); Neutrophils % (auto) 66.2 % (37.0-80.0); Nucleated Red Blood Cells % 0.3 %; Platelet Count (auto) 276 10^3/uL (140-450); Red Blood Cells 4.04 10^6/uL (4.0-5.20); White Blood Cell 11.3 10^3/uL (4.4-10.8)
[2024-03-10 13:00] VITALS: BP 156/85; PULSE 109; RESP 18; TEMP 98.5; O2SAT 98
[2024-03-10] MEDS: PROCHLORPERAZINE MALEATE 10 MG TAB PO ONE (13:23)
[2024-03-10] MEDS: POTASSIUM CHL 20 Meq TABLET PO ONE (15:33)
[2024-03-10] MEDS: hydrALAZINE HCL 25 MG TAB PO SCH (15:35)
[2024-03-10] MEDS ORDERED: FLUTICASONE PROP NASAL SPR 0.05 % (50MCG) 16GM EACHNOSTRI ONE ×2 (16:00→20:00)
[2024-03-10] MEDS ORDERED: LISI20TA56 PO ×2 (16:29→16:43)
[2024-03-10] MEDS ORDERED: TIZA4TAB9 PO (16:51)
[2024-03-10] MEDS ORDERED: PSYL0.524 PO (16:51)
[2024-03-10 17:00] VITALS: BP 118/69; PULSE 91; RESP 18; TEMP 98.3; O2SAT 96
[2024-03-10] MEDS: CYCLOBENZAPRINE HCL 10 MG TAB PO ONE (17:57)
[2024-03-10 21:33] LABS: COVID19 ANTIGEN SOFIA FIA NEGATIVE (NEGATIVE)
[2024-03-10 21:34] LABS: Rapid Influenza A Negative (Negative); Rapid Influenza B Negative (Negative)
== END 2024-03-10 20:45 | disposition home or self-care (01) | DRG 206 ==
LOC: ER 05:39 → TELE 15:22 → TELE-EAST 03-09 16:11
PROVIDERS: ADMIT Nurse Practitioner Family; ATTEND Student in an Organized Health Care Education/Training Program
DX: M94.0 Chondrocostal junction syndrome [Tietze] (principal); N17.9 Acute kidney failure, unspecified; T40.711A Poisoning by cannabis, accidental (unintentional), initial encounter; K56.41 Fecal impaction; B34.9 Viral infection, unspecified; K52.9 Noninfective gastroenteritis and colitis, unspecified; T40.5X1A Poisoning by cocaine, accidental (unintentional), initial encounter; E87.6 Hypokalemia; K74.60 Unspecified cirrhosis of liver; D35.01 Benign neoplasm of right adrenal gland; D35.02 Benign neoplasm of left adrenal gland; F17.210 Nicotine dependence, cigarettes, uncomplicated; I10 Essential (primary) hypertension; F31.9 Bipolar disorder, unspecified; J44.9 Chronic obstructive pulmonary disease, unspecified; Z90.49 Acquired absence of other specified parts of digestive tract; Z79.899 Other long term (current) drug therapy; Z79.82 Long term (current) use of aspirin; Z83.3 Family history of diabetes mellitus
CPT/HCPCS: 36415; 71045; 74176; 80048; 80053; 80307; 81015; 82962; 83690; 83735; 83880; 84443; 84484; 85025; 87426; 87804; 93005; 93306; 96361; 96374; 96375; 96376; 99291; G0378; J1815; J1885; J2405; Q0164

== ENCOUNTER 2024-09-07 14:26 | Emergency (ER) | payer MEDICARE, OTHER ==
[~2024-09-07] VITALS: Ht 154.9 cm; Wt 62.9 kg
[~2024-09-07 14:26] MED LIST changes: +LISI20TA56 PO; +PSYL0.524 PO; +TIZA4TAB9 PO
[2024-09-07 15:33] LABS: Urine Bacteria None Seen /hpf (None Seen)
[2024-09-07 15:40] LABS: Urine Blood Negative /uL (Negative); Urine Clarity Clear (Clear); Urine Color Light-Yellow (Yellow); Urine Hyaline Cast FEW /lpf (0 - 2); Urine Protein, UAD Negative (Negative); Urine Specific Gravity 1.015 (1.001-1.035); Urine Squamous Epithelial Cell FEW /hpf (<5); Urine Urobilinogen Normal (Negative); Urine WBC 4 /HPF (0-5)
--- NOTE | 2024-09-07 15:55 | ED.PDOC ---
Musculoskeletal HPI Comments 64Y F with PMHx HTN, anxiety, insomnia, and chronic back pain presents to ED with chief complaint rt foot pain x2days with back pain, urinary frequency, nausea, and vomiting. Pt describes rt foot pain as aching. Pt states she tripped and hurt herself on metal frame of bed 2 days ago. Pt also ran out of her medication and was taking Quetiapine and Valium 5mg q8h. No other symptoms/history reported. Chief Complaint: Back Pain Time Seen by MD: 15:30 Primary Care Provider: DelphineOA Reviewed Notes: Nurses Notes, Medications, Allergies Allergies: Coded Allergies: NO KNOWN ALLERGIES (Unverified , 12/31/22) Home Meds Active Scripts Tizanidine Hydrochloride (Zanaflex) 4 Mg Tab, 1 TAB PO BID PRN for 4 Days, #8 TAB Prov:AGUSTINA HUTCHISON MD 03/10/24 Psyllium (Metamucil) 0.36 Gm Cap, 0.36 GM PO DAILY for 30 Days, #30 CAP Prov:AGUSTINA HUTCHISON MD 03/10/24 Lisinopril (Lisinopril) 20 Mg Tab, 20 MG PO DAILY for 60 Days, #60 TAB Prov:AGUSTINA HUTCHISON MD 03/10/24 Baclofen (Baclofen) 10 Mg Tab, 10 MG PO QHSP PRN, #20 TAB Prov:MONTY LUCAS 12/03/23 Ibuprofen (Ibuprofen) 800 Mg Tab, 1 TAB PO TID, #24 TAB Prov:MONTY LUCAS 24 Metoclopramide Hcl (Reglan) 10 Mg Tab, 10 MG PO Q6HP PRN, #15 TAB Prov:FAIZAN ALVAREZ PAC 06/10/23 Ondansetron Odt 4MG Tab (ZOFRAN PO) 4 Mg Tb, 4 MG PO Q6HP PRN, #15 TAB ODT TAB-DISSOLVE IN MOUTH, THEN SWALLOW Prov:FAIZAN ALVAREZ PAC 06/10/23 Acetaminophen W/ Codeine (Tylenol W/Cod #3) 1 Tab Tb, 1 TAB PO Q6HP PRN, #15 TAB Prov:FAIZAN ALVAREZ PAC 06/10/23 Hydrocodone-Acetaminophen (Hydrocodone Bitartrate/AC 5-325 mg) 1 Tab Tab, 1 TAB PO Q6HPRN PRN for 3 Days, #12 TAB Prov:DONNA PADRON MD 01/06/23 Vancomycin Hcl (Vancomycin Po) 125 Mg So, 125 MG PO QID for 5 Days, #40 EA Prov:DONNA PADRON MD 01/06/23 Reported Medications Mirtazapine (Mirtazapine Oral Disintegrating Tablet) 15 Mg Tab, 1 TAB PO DAILY PRN 01/01/23 Quetiapine Fumerate (QUETIAPINE FUMARATE) 100 Mg Tab, 100 MG PO DAILY 01/01/23 Hydroxyzine Hcl (Hydroxyzine Hcl) 25 Mg Tab, 25 MG PO TID 01/01/23 Metoprolol Tartrate (Lopressor) 25 Mg Tb, 1 TAB PO BID 01/01/23 Lurasidone Hydrochloride (Lurasidone Hydrochloride) 40 Mg Tab, PO 01/01/23 Trazodone Hcl (Trazodone Hcl) 100 Mg Tab, 2 TAB PO QHSP PRN 01/01/23 Amlodipine Besylate (Amlodipine Besylate) 10 Mg Tab, 1 TAB PO DAILY 01/01/23 Information Source: Patient Mode of Arrival: Ambulatory Location: Right Extremity Location: Back, Foot Timing: Days Prehospital treatment: None Severity: Mild Able to Move Extremity: Yes Bear Weight: Limited Pain: Mild Mechanism: Unknown Circumstances: Fall Onset of Symptoms: After Trauma Symptoms: Swelling, Pain DVT Risk Factors: NONE Associated signs and symptoms: Back pain, Foot pain, Other Past Medical History PAST MEDICAL HISTORY: Anxiety, COPD, HTN, Liver Surgical History: Cholecystectomy, , Tubal Ligation COMMISSIONS ANALYST History: No Pertinent COMMISSIONS ANALYST History Family History Family History: Reviewed,noncontributory to illness, Family hx of DM Social History Smoker: Cigarettes Alcohol: Denies ETOH Use Drugs: Marijuana Lives In: Home Constitutional: denies: chills, diaphoresis, fatigue, fever, malaise, sweats, weakness, others EENTM: denies: blurred vision, double vision, ear bleeding, ear discharge, ear drainage, ear pain, ear ringing, eye pain, eye redness, hearing loss, mouth pain, mouth swelling, nasal discharge, nose bleeding, nose congestion, nose pain, photophobia, tearing, throat pain, throat swelling, voice changes, others Respiratory: denies: cough, hemoptysis, orthopnea, SOB at rest, shortness of breath, SOB with excertion, stridor, wheezing, others Cardiovascular: denies: chest pain, dizzy spells, diaphoresis, Dyspnea on exertion, edema, irregular heart beat, left arm pain, lightheadedness, palpitations, PND, syncope, others Gastrointestinal: reports: nausea, vomiting; denies: abdomen distended, abdominal pain, blood streaked bowels, constipated, diarrhea, dysphagia, difficulty swallowing, hematemesis, melena, poor appetite, poor fluid intake, rectal bleeding, rectal pain, others Genitourinary: reports: frequency; denies: abnormal vagina bleeding, burning, dyspareunia, dysuria, flank pain, hematuria, incontinence, pain, , vagina discharge, urgency, others Neurological: denies: dizziness, fainting, headache, left sided numbness, left sided weakness, numbness, paresthesia, pre-existing deficit, right sided numbness, right sided weakness, seizure, speech problems, tingling, tremors, weakness, others Musculoskeletal: reports: back pain, others (rt foot pain); denies: gout, joint pain, joint swelling, muscle pain, muscle stiffness, neck pain Integumetry: denies: bruises, change in color, change in hair/nails, dryness, laceration, lesions, lumps, rash, wounds, others Allergic/Immunocompromised: denies: Difficulty Healing, Frequent Infections, Hives, Itching, others Hematologic/Lymphatic: denies: anemia, blood clots, easy bleeding, easy bruising, swollen glands, others Endocrine: denies: excessive hunger, excessive sweating, excessive thirst, excessive urination, flushing, intolerance to cold, intolerance to heat, unexplained weight gain, unexplained weight loss, others Psychiatric: denies: anxiety, bipolar disorder, depression, hopeless, panic disorder, schizophrenia, sleepless, suicidal, others All Other Systems: Reviewed and Negative Physical Exam General Appearance: Mild Distress, Normal HEENT: Normal ENT Inspection, Pharynx Normal, TMs Normal Neck: Full Range of Motion, Non-Tender, Normal, Normal Inspection Respiratory: Chest Non-Tender, Lungs Clear, No Accessory Muscle Use, No Respiratory Distress, Normal Breath Sounds Cardiovascular: No Edema, No JVD, No Murmur, No Gallop, Normal Peripheral Pulses, Regular Rate/Rhythm Breast Exam: Deferred Gastrointestinal: No Organomegaly, Non Tender, No Pulsatile Mass, Normal Bowel Sounds, Soft Genitalia: Deferred Pelvic: Deferred Rectal: Deferred Extremities: No calf tenderness, Normal capillary refill, Normal inspection, Normal range of motion, Non-tender, No pedal edema Musculoskeletal : Location: Right Extremity Location: Back (tender lumbar spine and paraspinal region), Great Toe Apperance: Swelling, Limited ROM, Tenderness: Moderate Neurologic: Alert, 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 Was a procedure done?: No Differential Diagnosis EXT Differential Diagnosis: Fracture, Sprain, Dislocation, Contusion, Strain X-Ray, Labs, Meds, VS Vital Signs Date Time Temp Pulse Resp B/P (MAP) Pulse Ox O2 Delivery O2 Flow Rate FiO2 09/07/24 14:45 98.5 65 18 152/79 (103) 98 98.5 Lab Test 09/07/24 14:50 Range/Units Urine Color Light-yellow Yellow Urine Clarity Clear Clear Urine pH 6.0 5.0-9.0 Urine Specific [place] 1.015 1.001-1.035 Urine Protein Negative Negative Urine Ketones Negative Negative Urine Blood Negative Negative /uL Urine Nitrite Negative Negative Urine Bilirubin Negative Negative Urine Urobilinogen Normal Negative mg/dL Urine Leukocyte Esterase 1+ Negative /uL Urine RBC 1 0 - 4 /hpf Urine Microscopic WBC 4 0-5 /HPF Urine Squamous Epithelial Cells Few <5 /hpf Urine Bacteria None seen None Seen /hpf Urine Hyaline Casts Few 0 - 2 /lpf Urine Glucose Normal Normal mg/dL Current Medications Medications (Trade) Dose Ordered Sig/Henny Route Start Time Stop Time Status Last Admin Ondansetron HCl (Zofran Po) 4 mg ONCE ONCE PO 09/07/24 16:15 09/07/24 16:17 DC 09/07/24 16:[address] [address] Ph: [phone] DIAGNOSTIC IMAGING Diagnostic Imaging Report : [id number] Signed PATIENT: BELINDA AVILA ACCT: [id number] UNIT: [id number] : 1960 LOC: ER ROOM / BED: / AGE / SEX: 64 / F ADM STATUS: REG ER SERVICE 161 ORDERING PHYSICIAN: MATT ORDAZ PROCEDURE(s): RFOOT - R FOOT 3 VIEW XRAY REASON: trauma ORDER NUMBER(s): [id number], ACCESSION NUMBER(s): [id number] CLINICAL INDICATION: trauma TECHNIQUE: 3 radiographic views of the right foot were obtained. Comparison: None FINDINGS/IMPRESSION: There is no evidence of acute fracture or dislocation. Arthritic changes are noted of the metatarsal phalangeal joint of the right great toe. There are erosive changes to the articular surfaces is the proximal portion of the proximal phalanx distal portion of the 1st metatarsal The alignment is anatomical. There is no radiopaque foreign body. ATED BY: MK MARAVILLA Jr., DO DICTATED DATE/TIME: 09/07/241653 SIGNED BY: MK MARAVILLA Jr., SIGNED DATE/TIME: 09/07/241653 CC: Time of 1ST Reevaluation: 16:00 Reevaluation 1ST: Unchanged Patient Education/Counseling: Diagnosis, Treatment Family Education/Counseling: No Family Present Departure 1 Departure Time of Disposition: 17:35 Impression: Primary Impression: Lumbar sprain Qualified Codes: S33.5XXA - Sprain of ligaments of lumbar spine, initial encounter Additional Impression: Foot contusion Qualified Codes: S90.31XA - Contusion of right foot, initial encounter Disposition: HOME / SELF CARE / HOMELESS Condition: Fair e-Prescriptions Ondansetron HCl (Ondansetron) 4 Mg Tab 4 MG PO TID PRN, #20 TAB Prov: MATT ORDAZP 09/07/24 Quetiapine Fumerate (Seroquel) 50 Mg Tab 1 TAB PO QPM, #30 TAB 2 Refills Prov: MATT ORDAZP 09/07/24 Diazepam (Valium) 5 Mg Tab 1 TAB PO BID, #30 TAB Prov: MATT ORDAZP 09/07/24 Discharged With: Self Critical Care Note Critical Care Time?: No Stability Stability form required: No Heart Score Heart Score: Heart Score Response (Comments) Value History N/A 0 EKG N/A 0 Age N/A 0 Risk Factors N/A 0 Troponin N/A 0 Total 0 I personally scribed for MATT ORDAZ ENGINEERING RECRUITER ([email or web address]) on 09/07/24 at 15:55. Electronically submitted by Sarahy Rizvi ([employer]). I personally scribed for MATT ORDAZ ENGINEERING RECRUITER ([email or web address]) on 09/07/24 at 16:58. Electronically submitted by Sarahy Rizvi ([employer]). MATT ORDAZ ENGINEERING RECRUITER Sep 07, 2024 15:55
[2024-09-07] MEDS: ONDANSETRON ODT 4 MG TAB PO ONE (16:22)
--- NOTE | 2024-09-07 16:56 | DVH ---
CLINICAL INDICATION: trauma TECHNIQUE: 3 radiographic views of the right foot were obtained. Comparison: None FINDINGS/IMPRESSION: There is no evidence of acute fracture or dislocation. Arthritic changes are noted of the metatarsal phalangeal joint of the right great toe. There are eros byron changes to the articular surfaces is the proximal portion of the proximal phalanx distal portion of the 1st metatarsal The alignment is anatomical. There is no radiopaque foreign body.
[2024-09-07] MEDS ORDERED: DIAZ-681 PO (17:38)
[2024-09-07] MEDS ORDERED: ONDA-155 PO (17:38)
[2024-09-07] MEDS ORDERED: QUET50TA PO (17:38)
[2024-09-07 18:19] VITALS: BP 138/82; PULSE 61; RESP 20; TEMP 98; O2SAT 99
== END 2024-09-07 18:22 | disposition home or self-care (01) ==
LOC: ER 14:26
DX: S33.5XXA Sprain of ligaments of lumbar spine, initial encounter (principal); S90.31XA Contusion of right foot, initial encounter; F41.9 Anxiety disorder, unspecified; R11.2 Nausea with vomiting, unspecified; J44.9 Chronic obstructive pulmonary disease, unspecified; I10 Essential (primary) hypertension; F17.210 Nicotine dependence, cigarettes, uncomplicated; Z90.49 Acquired absence of other specified parts of digestive tract; Z79.899 Other long term (current) drug therapy; F12.90 Cannabis use, unspecified, uncomplicated; Z79.1 Long term (current) use of non-steroidal anti-inflammatories (NSAID); Z98.51 Tubal ligation status; W18.40XA Slipping, tripping and stumbling without falling, unspecified, initial encounter; Y93.89 Activity, other specified; Y92.89 Other specified places as the place of occurrence of the external cause; Y99.8 Other external cause status
CPT/HCPCS: 73630; 81001; 99284; Q0162